=== PATIENT | male | born 1990 | race Caucasian/White ===

== ENCOUNTER 2017-07-31 08:00 | Outpatient (CLI) | payer BC ==
[2017-07-31 12:48] LABS: BASOPHILS # (AUTO) 0.1 10^3/uL (0.0-0.1); BASOPHILS % (AUTO) 1.8 %; EOSINOPHILS # (AUTO) 0.2 10^3/uL (0.0-0.7); HGB - HEMOGLOBIN 15.7 g/dL (14.0-18.0); LYMPHOCYTES # (AUTO) 1.4 10^3/uL (1.5-3.5); LYMPHOCYTES % (AUTO) 29.5 %; MEAN CORPUSCULAR HEMOGLOBIN 30.4 pg (27.0-31.0); MEAN CORPUSCULAR HGB CONC 33.3 g/dL (32.0-36.0); MEAN PLATELET VOLUME 9.6 fL (7.4-11.4); MONOCYTES # (AUTO) 0.4 10^3/uL (0.0-1.0); MONOCYTES % (AUTO) 8.3 %; NEUTROPHILS # (AUTO) 2.8 10^3/uL (1.5-6.6); NEUTROPHILS % (AUTO) 56.4 %; PLT - PLATELET COUNT 228 10^3/uL (130-450); RED BLOOD COUNT 5.18 10^6/uL (4.70-6.10); RED CELL DISTRIBUTION WIDTH 12.9 % (12.0-15.0); WHITE BLOOD COUNT 4.9 x10^3/uL (4.8-10.8)
[2017-07-31 13:14] LABS: ALBUMIN 4.1 g/dL (3.2-5.5); ALBUMIN/GLOBULIN RATIO 1.3 (1.0-2.2); ALKALINE PHOSPHATASE 57 IU/L (42-121); ALT ALANINE AMINOTRANSFERASE 29 IU/L (10-60); AST ASPARTATE AMINOTRANSFERASE 22 IU/L (10-42); BILIRUBIN,TOTAL 1.1 mg/dL (0.2-1.0); BUN - BLOOD UREA NITROGEN 10 mg/dL (6-20); CALCIUM 9.1 mg/dL (8.5-10.3); CARBON DIOXIDE - CO2 27 mmol/L (21-32); CHLORIDE 103 mmol/L (101-111); CHOL/HDL RATIO 3.2 (<5.0); CHOLESTEROL 229 mg/dL; GFR - MDRD 89 (>89); GLUCOSE 88 mg/dL (70-100); HDL CHOLESTEROL 72 mg/dL; LDL CHOLESTEROL,CALCULATED 140 mg/dL; LDL/HDL RATIO 1.9 (<3.6); SODIUM 136 mmol/L (135-145); TOTAL PROTEIN 7.2 g/dL (6.7-8.2); VLDL CHOLESTEROL 17 mg/dL
[2017-07-31 13:17] LABS: HB2 TOTAL 17.6 g/dL; HEMOGLOBIN A1C 0.52 g/dL; HEMOGLOBIN A1C % 4.9 % (4.6-6.2)
== END 2017-07-31 23:59 | disposition home or self-care (01) ==
LOC: LAB.WCP 08:00
PROVIDERS: ATTEND Family Medicine
DX: Z00.00 Encounter for general adult medical examination without abnormal findings (principal)
CPT/HCPCS: 36415; 80053; 80061; 83036; 83721; 84443; 85025

== ENCOUNTER 2017-08-13 14:19 | Outpatient (CLI) | END 2017-08-13 14:20 | disposition home or self-care (01) ==

== ENCOUNTER 2018-01-20 11:22 | Outpatient (CLI) | payer BC ==
[2018-01-20 19:59] LABS: CHOL/HDL RATIO 2.3 (<5.0); CHOLESTEROL 219 mg/dL; HDL CHOLESTEROL 96 mg/dL; LDL CHOLESTEROL,CALCULATED 100 mg/dL; VLDL CHOLESTEROL 23 mg/dL
== END 2018-01-20 11:23 | disposition home or self-care (01) ==
LOC: LAB.WCP 11:22
PROVIDERS: ATTEND Family Medicine
DX: E78.00 Pure hypercholesterolemia, unspecified (principal)
CPT/HCPCS: 36415; 80061; 83721

== ENCOUNTER 2018-12-02 12:27 | Outpatient (CLI) | payer BC ==
--- NOTE | 2018-12-02 13:12 | XRAY Report ---
Reason: SOB Procedure Date: 12/02/2018 Accession Number: [id number] / [id number] Procedure: XRN - Chest 2 View X-Ray CPT Code: 48179 FULL RESULT: EXAM: CHEST RADIOGRAPHY EXAM DATE: 12/02/2018 12:53 PM. CLINICAL HISTORY: Shortness of breath. COMPARISON: None. TECHNIQUE: 2 views. FINDINGS: Lungs/Pleura: No focal opacities evident. No pleural effusion. No pneumothorax. Normal volumes. Mediastinum: Heart and mediastinal contours are unremarkable. Other: None. IMPRESSION: No acute cardiopulmonary abnormality. RAD[facility]
== END 2018-12-02 12:28 | disposition home or self-care (01) ==
LOC: DI.N 12:27
PROVIDERS: ATTEND Family Medicine
DX: R06.02 Shortness of breath (principal)
CPT/HCPCS: 71046

== ENCOUNTER 2018-12-02 12:28 | Outpatient (CLI) | payer BC ==
[2018-12-02 19:01] LABS: BASOPHILS # (AUTO) 0.1 10^3/uL (0.0-0.1); EOSINOPHILS # (AUTO) 0.2 10^3/uL (0.0-0.7); EOSINOPHILS % (AUTO) 4.1 %; LYMPHOCYTES # (AUTO) 1.2 10^3/uL (1.5-3.5); LYMPHOCYTES % (AUTO) 23.5 %; MEAN CORPUSCULAR HEMOGLOBIN 30.1 pg (27.0-31.0); MEAN CORPUSCULAR HGB CONC 32.4 g/dL (32.0-36.0); MEAN PLATELET VOLUME 10.7 fL (7.4-11.4); MONOCYTES # (AUTO) 0.4 10^3/uL (0.0-1.0); NEUTROPHILS # (AUTO) 3.2 10^3/uL (1.5-6.6); NEUTROPHILS % (AUTO) 62.2 %; PLT - PLATELET COUNT 294 10^3/uL (130-450); RED BLOOD COUNT 5.31 10^6/uL (4.70-6.10); RED CELL DISTRIBUTION WIDTH 12.7 % (12.0-15.0); WHITE BLOOD COUNT 5.1 x10^3/uL (4.8-10.8)
[2018-12-02 19:37] LABS: CREATINE KINASE MB 2.2 ng/mL (0.6-6.3)
[2018-12-02 19:51] LABS: ALBUMIN 4.9 g/dL (3.2-5.5); ALBUMIN/GLOBULIN RATIO 1.9 (1.0-2.2); ALKALINE PHOSPHATASE 58 IU/L (42-121); ALT ALANINE AMINOTRANSFERASE 25 IU/L (10-60); AST ASPARTATE AMINOTRANSFERASE 27 IU/L (10-42); BILIRUBIN,TOTAL 0.8 mg/dL (0.2-1.0); BUN - BLOOD UREA NITROGEN 6 mg/dL (6-20); CALCIUM 9.2 mg/dL (8.5-10.3); CARBON DIOXIDE - CO2 27 mmol/L (21-32); CHLORIDE 103 mmol/L (101-111); CHOL/HDL RATIO 2.7 (<5.0); CHOLESTEROL 248 mg/dL; CREATININE 0.9 mg/dL (0.6-1.2); GFR - MDRD 100 (>89); GLUCOSE 87 mg/dL (70-100); HDL CHOLESTEROL 92 mg/dL; LDL CHOLESTEROL,CALCULATED 139 mg/dL; LDL/HDL RATIO 1.5 (<3.6); SODIUM 140 mmol/L (135-145); TOTAL PROTEIN 7.5 g/dL (6.7-8.2); VLDL CHOLESTEROL 17 mg/dL
== END 2018-12-02 23:59 | disposition home or self-care (01) ==
LOC: LAB.N 12:28
PROVIDERS: ATTEND Family Medicine
DX: R06.02 Shortness of breath (principal)
CPT/HCPCS: 36415; 80053; 80061; 82553; 83721; 84443; 84484; 85025; 85379

== ENCOUNTER 2018-12-02 19:46 | Emergency (ER) | payer BC ==
[2018-12-02 19:56] VITALS: BP 148/84
[2018-12-02] MEDS ORDERED: IOVERSOL 320 100 ML VIAL IVP ONE ×3 (20:30→21:52)
[2018-12-02] MEDS ORDERED: HYALURONIDASE HUMAN RECOMB 150 UNIT/ML VIAL ONE (21:46)
--- NOTE | 2018-12-02 21:55 | ED Physician Documentation ---
History of Present Illness - Stated complaint Stated Complaint: ABNORMAL LABS - Chief complaint Chief Complaint: General - History obtained from History obtained from: Patient - History of Present Illness Timing: Today (28-year-old gentleman, healthy, he is playing golf last week and had about a 30-minute episode of what sounds like a panic attack with rapid breathing and anxiety with right arm numbness. He has not had that in several days but went to his doctor today, a d-dimer was done and positive and he was sent here for a CT.) Review of Systems Constitutional: reports: Reviewed and negative Cardiac: reports: Reviewed and negative Respiratory: reports: Reviewed and negative PD PAST MEDICAL HISTORY - Allergies Allergies/Adverse Reactions: Allergies Allergy/AdvReac Type Severity Reaction Status Date / Time No Known Drug Allergies Allergy Verified 12/02/18 19:52 PD ED PE NORMAL - Vitals Vital signs reviewed: Yes - General General: Alert and oriented X 3, No acute distress - Neck Neck: Supple, no meningeal sign, No bony TTP - Cardiac Cardiac: RRR, No murmur - Respiratory Respiratory: No respiratory distress, Clear bilaterally - Abdomen Abdomen: Non tender - Extremities Extremities: No edema, No calf tenderness / cord, Other (At the time of my evaluation he is already had a CT scan. In the right upper extremity CT contrast has extravasated. There is some swelling there but no tense tenderness or redness.) - Neuro Neuro: Normal speech - Psych Psych: Normal mood, Normal affect Results - Vitals Vitals: Vital Signs - 24 hr 12/02/18 19:53 Temperature 36.7 C Heart Rate 88 Respiratory 16 Rate Blood Pressure 148/84 H O2 Saturation 98 Oxygen O2 Source Room air - Labs Labs: Laboratory Tests 12/02/18 20:19 Troponin I High Sens 2.6 - Rads (name of study) CTA Chest Radiology: EMP read contemporaneously (negative) PD MEDICAL DECISION MAKING - ED course ED course: Briefly this is a young man who had what sounds like a panic attack last week and had a d-dimer in the clinic and was sent here for a CT angiogram of the chest, this was done and negative. He is asymptomatic now. He did have a contrast extravasation in the right arm, there is no significant tenderness. There is swelling. He was given signs and symptoms watch out for. Departure - Departure Disposition: 01 Home, Self Care Clinical Impression: Dyspnea Qualifiers: Dyspnea type: dyspnea on exertion Qualified Code(s): R06.09 - Other forms of dyspnea Condition: Good Comments: He was given paper discharge instructions as we were in [facility] downtime. Discharge Date/Time: 12/02/18 22:54
--- NOTE | 2018-12-02 22:33 | CT Report ---
Reason: PE protocol, high dimer, dyspnea Procedure Date: 12/02/2018 Accession Number: [id number] / [id number] Procedure: CT - ANGIO CHEST W/WO CPT Code: FULL RESULT: EXAM: CT ANGIOGRAM CHEST EXAM DATE: 12/02/2018 09:50 PM. CLINICAL HISTORY: PE protocol, high dimer, dyspnea. COMPARISON: None. TECHNIQUE: Routine helical imaging was performed through the chest in the pulmonary arterial phase. IV Contrast: OPTI 320 80ML. Reconstructions: Coronal 3-D MIP reconstructions.Sagittal and coronal. In accordance with CT protocol optimization, one or more of the following dose reduction techniques were utilized for this exam: automated exposure control, adjustment of mA and/or KV based on patient size, or use of iterative reconstructive technique. FINDINGS: Pulmonary Arteries: Diagnostic quality: Adequate through the segmental arteries. No evidence for acute or chronic pulmonary emboli. RV/LV is within normal limits. There is no interventricular septal bowing. There is no reflux of contrast material in the IVC. Lungs/Pleura: No consolidation, nodules, or edema. No effusions or pneumothorax. Mediastinum: Normal. No cardiac enlargement or adenopathy. Thoracic Aorta: Unremarkable. Upper Abdomen: Unremarkable. Other: None. IMPRESSION: Normal pulmonary CT angiogram. No pulmonary emboli. [facility]
== END 2018-12-02 22:54 | disposition home or self-care (01) ==
LOC: ED 19:46
DX: R06.02 Shortness of breath (principal); R79.89 Other specified abnormal findings of blood chemistry; T80.89XA Other complications following infusion, transfusion and therapeutic injection, initial encounter; Y84.8 Other medical procedures as the cause of abnormal reaction of the patient, or of later complication, without mention of misadventure at the time of the procedure; Y92.538 Other ambulatory health services establishments as the place of occurrence of the external cause
CPT/HCPCS: 36415; 71046; 71275; 80061; 82553; 84484; 85379; 93005; 99282; 99284; Q9967; 80053; 84443; 85025

== ENCOUNTER 2019-01-21 15:15 | Outpatient (CLI) | payer BC ==
--- NOTE | 2019-01-21 16:37 | Ultrasound Report ---
Reason: LEG PAIN RT Procedure Date: 01/21/2019 Accession Number: [id number] / [id number] Procedure: US - Duplex Ext Veins Right CPT Code: Final Report FULL RESULT: EXAM: RIGHT LOWER EXTREMITY VENOUS ULTRASOUND EXAM DATE: 01/21/2019 04:22 PM. CLINICAL HISTORY: Right lower extremity pain COMPARISON: None. TECHNIQUE: Real-time sonographic vascular imaging was performed by the threader operator through the lower extremity utilizing both color-flow and Doppler spectral analysis. Multiple canvas products sales representative static images were saved for review. FINDINGS: Common Femoral Vein (CFV): Normal. CFV-GSV Junction: Normal. Profunda Femoral Vein (PFV): Normal. Femoral Vein (FV) Prox: Normal. Femoral Vein (FV) Mid: Normal. Femoral Vein (FV) Dist: Normal. Popliteal Vein: Normal. Posterior Tibial Veins: Normal. Peroneal Veins: Normal. IMPRESSION: No evidence for deep venous thrombosis. RADIA
--- NOTE | 2019-01-21 16:39 | Ultrasound Report ---
Reason: ARM PAIN RT Procedure Date: 01/21/2019 Accession Number: [id number] / [id number] Procedure: US - Ext Limited Non Vascular CPT Code: Final Report FULL RESULT: EXAM: RIGHT UPPER EXTREMITY ULTRASOUND - NONVASCULAR / LIMITED EXAM DATE: 01/21/2019 04:26 PM. CLINICAL HISTORY: Right arm pain. COMPARISON: None. TECHNIQUE: Real-time scanning was performed with static images obtained the area of pain in the right forearm was targeted.. FINDINGS IMPRESSION: Normal soft tissues. No mass lesions or fluid collections. No explanation for pain. RADIA
== END 2019-01-21 15:16 | disposition home or self-care (01) ==
LOC: DI 15:15
PROVIDERS: ATTEND Family Medicine
DX: M79.604 Pain in right leg (principal); M79.601 Pain in right arm
CPT/HCPCS: 76882

== ENCOUNTER 2019-06-22 14:45 | Emergency (ER) | payer BC ==
--- NOTE | 2019-06-22 15:14 | ED Physician Documentation ---
PD HPI UPPER EXT INJURY - Stated complaint Stated Complaint: R ARM INJURY - Chief complaint Chief Complaint: Ext Problem - History obtained from History obtained from: Patient - History of Present Illness Location: Right, Wrist, Hand Type of injury: Blunt / blow (punched a wall last night; pain in ulnar proximal hand and wrist) Where injury occurred: Home Timing - onset: Last night Worsened by: Moving, Palpating Associated symptoms: Swelling. No: Weakness, Numbness Review of Systems Skin: denies: Abrasion (s), Laceration (s) Neurologic: denies: Focal weakness, Numbness PD PAST MEDICAL HISTORY - Past Medical History Past Medical History: No Cardiovascular: None Respiratory: None Neuro: None Endocrine/Autoimmune: None GI: None : None HEENT: None Psych: None Musculoskeletal: None - Past Surgical History Past Surgical History: No - Allergies Allergies/Adverse Reactions: Allergies Allergy/AdvReac Type Severity Reaction Status Date / Time No Known Drug Allergies Allergy Verified 06/22/19 14:48 - Social History Does the pt smoke?: No Smoking Status: Never smoker Does the pt drink ETOH?: No ETOH Use: Beer Does the pt have substance abuse?: No - Immunizations Immunizations are current?: Yes - POLST Patient has POLST: No PD ED PE NORMAL - Vitals Vital signs reviewed: Yes - General General: Alert and oriented X 3, No acute distress, Well developed/nourished - Derm Derm: Normal color, Warm and dry, No rash - Extremities Extremities: Other (right hand tender ulnar proximal MCs and carpals area. Distal forearm not tender per se. ) - Neuro Neuro: Alert and oriented X 3, No motor deficit, Normal speech Results - Vitals Vitals: Vital Signs - 24 hr 06/22/19 06/22/19 14:48 16:41 Temperature 36.5 C 36.9 C Heart Rate 90 76 Respiratory 14 16 Rate Blood Pressure 151/84 H 140/93 H O2 Saturation 98 100 Oxygen O2 Source Room air - Rads (name of study) right wrist and hand Radiology: Prelim report reviewed (comminuted hamate fracture.), See rad report Procedures - Splint (location) right wrist Splint applied by: Tech Type of splint: Fiberglass, Ulnar gutter Other: Patient tolerated well, No complications, Neurovascular intact, Sling provided PD MEDICAL DECISION MAKING - ED course Complexity details: reviewed results, considered differential, d/w patient Departure - Departure Disposition: 01 Home, Self Care Clinical Impression: Fx hamate bone-closed Qualifiers: Encounter type: initial encounter Hamate bone location: body Fracture alignment: nondisplaced Laterality: right Qualified Code(s): S62.144A - Nondisplaced fracture of body of hamate [unciform] bone, right wrist, initial encounter for closed fracture Condition: Stable Record reviewed to determine appropriate education?: Yes Instructions: ED Fx Wrist General Follow-Up: TESS CHRIS MD [Primary Care Provider] - Lam Wing MD [Provider Admit Priv/Credential] - Comments: Keep the wrist splinted for the next 3 to 4 weeks further healing of the wrist fracture. Follow-up with orthopedics in about 1 to 1-1/2 weeks, call tomorrow for an appointment. Use some anti-inflammatories such as ibuprofen or naproxen 3 times daily for the next week. Add Tylenol 4 times a day if needed for pains. Limited use of the right hand and wrist for the next 3 to 4 weeks. Further guidance from the orthopedics. Forms: Activity restrictions Discharge Date/Time: 06/22/19 16:45
--- NOTE | 2019-06-22 15:46 | XRAY Report ---
Reason: pain s/p punching a wall Procedure Date: 06/22/2019 Accession Number: [id number] / [id number] Procedure: XR - Wrist 4 View RT CPT Code: Final Report FULL RESULT: EXAM: RIGHT WRIST RADIOGRAPHY EXAM DATE: 06/22/2019 03:24 PM. CLINICAL HISTORY: Right hand and wrist pain after punching a wall. COMPARISON: HAND 3 VIEW RT 06/22/2019 3:06 PM. TECHNIQUE: 4 views. FINDINGS: Bones: Mildly comminuted and displaced fracture along the dorsal/medial aspect of the hamate. Joints: Normal alignment. Soft Tissues: Swelling overlying the fracture site. IMPRESSION: Mildly comminuted and displaced fracture along the dorsal/medial aspect of the hamate. RADIA
--- NOTE | 2019-06-22 15:46 | XRAY Report ---
Reason: pain s/p punching a wall Procedure Date: 06/22/2019 Accession Number: [id number] / [id number] Procedure: XR - Hand 3 View RT CPT Code: Final Report FULL RESULT: EXAM: RIGHT HAND RADIOGRAPHY EXAM DATE: 06/22/2019 03:26 PM. CLINICAL HISTORY: Right hand and wrist pain after punching a wall. COMPARISON: WRIST 4 VIEW RT 06/22/2019 3:06 PM. TECHNIQUE: 3 views. FINDINGS: Bones: Mildly comminuted and displaced fracture along the dorsal/medial aspect of the hamate. Joints: Normal alignment. Soft Tissues: Swelling overlying the fracture site. IMPRESSION: Mildly comminuted and displaced fracture along the dorsal/medial aspect of the hamate. RADIA
[2019-06-22 16:42] VITALS: BP 140/93
== END 2019-06-22 16:45 | disposition home or self-care (01) ==
LOC: ED 14:45
DX: S62.144A Nondisplaced fracture of body of hamate [unciform] bone, right wrist, initial encounter for closed fracture (principal); W22.01XA Walked into wall, initial encounter
CPT/HCPCS: 29125; 99283

== ENCOUNTER 2019-07-02 17:23 | Outpatient (CLI) | payer BC ==
--- NOTE | 2019-07-02 18:26 | CT Report ---
Reason: FRACTURE Procedure Date: 07/02/2019 Accession Number: [id number] / [id number] Procedure: CT - UPPER EXTREMITY WO - RT CPT Code: Final Report FULL RESULT: EXAM: RIGHT WRIST CT WITHOUT CONTRAST EXAM DATE: 07/02/2019 05:35 PM. CLINICAL HISTORY: Hamate fracture. COMPARISON: WRIST 4 VIEW RT 06/22/2019 3:06 PM HAND 3 VIEW RT 06/22/2019 3:06 PM. TECHNIQUE: Thin-section axial images were acquired of the wrist without contrast. Post-processing: Coronal and sagittal reformats. Other: None. In accordance with CT protocol optimization, one or more of the following dose reduction techniques were utilized for this exam: automated exposure control, adjustment of mA and/or KV based on patient size, or use of iterative reconstructive technique. FINDINGS: Bones: Comminuted depressed fracture distal hamate with distal hamate articular cortex 7 mm in AP dimension 1.3 cm in transverse dimension 5 mm depressed fracture. Posterior lateral 4 mm distal hamate comminuted fracture displacement. Negative for carpometacarpal subluxation. Negative for hamate hook fracture. Possible 4 mm x 3 mm cortical fracture fragment ventral radial aspect base fifth metacarpal. Joints: The scaphoid lunate angle is 69 degrees. The lunate to capitate angle is 25 degrees. Musculature: Normal. No fatty atrophy. Other: None. IMPRESSION: Depressed comminuted intraarticular fracture distal hamate with the depressed 5 mm distal hamate articular cortex fracture 7 mm in AP dimension and 1.3 cm in transverse dimension and there is posterior and lateral 4 mm displacement of distal fracture fragments. RADIA The call report notification system was initiated by Dr. Justin Conn at 06:24 PM on 07/02/2019. The above call report findings were discussed with Dr Wing by Dr. Justin Conn at 06:43 PM on 07/02/2019.
== END 2019-07-02 17:24 | disposition home or self-care (01) ==
LOC: DI 17:23
PROVIDERS: ATTEND Orthopaedic Surgery Sports Medicine
DX: S62.141A Displaced fracture of body of hamate [unciform] bone, right wrist, initial encounter for closed fracture (principal)